=== PATIENT | female | born 1935 | race Caucasian/White ===

== ENCOUNTER 2017-09-30 08:50 | Day surgery (SDC) | payer MEDICARE, MEDICAID ==
[~2017-09-30] VITALS: Ht 162.6 cm; Wt 77.1 kg
[~2017-09-30 08:50] MED LIST: ABILIFY5 MG PO; ADULT ASPIRIN E81 MG PO; AMBIEN5 MG PO; AMLODIPINE5 MG PO; APAP325 MG PO; B-12-SL1000 MCG SL; BUPROPION150 MG PO; BUSPIRONE15 MG PO; BUSPIRONE5 MG PO; CARAFATE1 G1 PO; CELEXA40 MG OR; CIPROFLOXACIN500 M1 PO; CIPROFLOXACN500 MG PO; CITROMA PO; COREG12.5 MG OR; CYANOCOBAL1000 MCG/M; CYMBALTA60 MG PO; D31000 UNIT PO; DESYREL50 MG/TAB PO; FISH OIL1000 MG PO; FLEXERIL PO; FLUARIX QUADRIV1 IN2 IM; GABAPENTIN300 M2 PO; GAVILA1; GLYCOLAX3350 N1 PO; HYDROCHLOROT25 MG PO; HYDROCODONE/ACE1 TA1 PO; KLONOPIN1 MG PO; LORTAB 5-325 MG1 TAB PO; LORTAB 5/3255 MG PO; LOTRIMIN AF FOR H1 %; MEDDOSEPAK PO; MOBIC7.5 M1 PO; MULTI VIT PO; NITROSTAT0.4 MG SL; OXYBUTYNIN CHLO10 MG PO; OXYBUTYNIN5 M1 PO; OXYCODONE HCL5 MG PO; OXYCODONE30 MG OR; PERCOCET1 TA4 PO; PHENAZOPYRID100 MG PO; PREVACID30 M2 OR; PRILOSEC20 MG/CAP PO; RANITIDINE150 M1 PO; REMERON30 MG PO; RESTORIL30 MG OR; SENOKOT EXTRA17.2 MG PO; SEROQUEL50 MG PO; SERTRALINE HCL100 MG PO; TRAMADOL HCL50 MG PO; TRAZODONE HCL100 MG PO; TRAZODONE PO; TRAZODONE100 MG OR; TRAZODONE50 MG PO; TRIFLUOPERAZ2 MG PO; ULTRAM50 M1 PO; VESICARE10 MG PO; VITAMIN C PO; WAL-FEX D 1212 HOUR PO; XALATAN 0.005%2.5 ML OU; ZOLPIDEM TARTRAT5 MG PO; ZOLPIDEM10 M1 PO; ZYPREXA20 MG OR
[2017-09-30 12:22] VITALS: BP 162/74
== END 2017-09-30 11:55 | disposition home or self-care (01) ==
LOC: ENDO 08:50 → ORM 10:00 → ENDO 11:55 → ORM 12:20
PROVIDERS: ATTEND Internal Medicine Gastroenterology
PROC: 0D748ZZ Dilation of Esophagogastric Junction, Via Natural or Artificial Opening Endoscopic (ICD-10-PCS; principal; 2017-09-30)
PROC: 0DB48ZX Excision of Esophagogastric Junction, Via Natural or Artificial Opening Endoscopic, Diagnostic (ICD-10-PCS; 2017-09-30)
DX: K22.2 Esophageal obstruction (principal); K21.9 Gastro-esophageal reflux disease without esophagitis; K59.00 Constipation, unspecified; Q40.8 Other specified congenital malformations of upper alimentary tract; Q39.8 Other congenital malformations of esophagus; K31.89 Other diseases of stomach and duodenum; K44.9 Diaphragmatic hernia without obstruction or gangrene; K29.71 Gastritis, unspecified, with bleeding; I10 Essential (primary) hypertension; E78.00 Pure hypercholesterolemia, unspecified; F32.9 Major depressive disorder, single episode, unspecified; F41.9 Anxiety disorder, unspecified; Z86.010 Personal history of colon polyps; Z80.0 Family history of malignant neoplasm of digestive organs; Z90.3 Acquired absence of stomach [part of]

== ENCOUNTER 2018-07-17 16:35 | Observation (INO) | payer MEDICARE, MEDICAID ==
[~2018-07-17] VITALS: Ht 162.6 cm; Wt 72.3 kg
[2018-07-17 16:50] VITALS: BP 190/81
[2018-07-17 17:17] LABS: HEMATOCRIT 31.7 % (37.0-47.0); HEMOGLOBIN 10.6 g/dl (12.0-16.0); IMMATURE GRANULOCYTES 0.4 % (0.0-5.0); MEAN CELL VOLUME 85.4 fL CALC (80.0-100.0); MEAN CORPUSCULAR HGB 28.6 pG CALC (26.0-32.0); MEAN CORPUSCULAR HGB CONC 33.4 g/L CALC (32.0-36.0); NEUT# 7.09 thou/uL (2.00-7.15); RED BLOOD COUNT 3.71 mill/uL (4.20-5.60); RED CELL DISTRI WIDTH 13.6 % (11.5-15.5)
[2018-07-17 17:31] LABS: ANION GAP 15 (6-22 (CALC)); BUN 10 mg/dL (8-23); BUN/CREATININE RATIO 18 (12-20 (CALC)); CARBON DIOXIDE 25 mmol/l (22-30); CHLORIDE 93 mmol/l (95-108); CREATININE 0.6 mg/dL (0.5-1.0); GFR > 60 ML/MIN (>=60 (CALC)); GFR FOR AFR.AMER. > 60 ML/MIN (>=60 (CALC)); POTASSIUM 3.9 mmol/l (3.5-5.1)
[2018-07-17 17:33] LABS: SODIUM 129 mmol/l (137-146)
[2018-07-17 19:29] VITALS: BP 123/63
[2018-07-17 19:32] LABS: URINE BILIRUBIN - DIPSTICK NEGATIVE (NEGATIVE); URINE BLOOD DIPSTICK NEGATIVE (NEGATIVE); URINE COLOR YELLOW; URINE GLUCOSE - DIPSTICK NEGATIVE (NEGATIVE); URINE KETONE TRACE mg/dL (NEGATIVE); URINE NITRITE - DIPSTICK NEGATIVE (Negative); URINE PH 6.5 (4.5-8.0); URINE PROTEIN - DIPSTICK NEGATIVE (NEG-TRACE); URINE SPECIFIC GRAVITY 1.015; URINE UROBILINOGEN - DIPSTICK 0.2 E.U./dL (0.2)
[2018-07-17 19:43] LABS: URINE CLARITY HAZY; URINE LEUK ESTERASE SMALL (NEGATIVE)
[2018-07-17 19:52] LABS: URINE RBC 0-2 RBC/hpf (0-5); URINE SQUAMOUS EPITHELIAL CELL FEW EPI/hpf (0-FEW)
[2018-07-18] VITALS (7 sets, daily range): BP systolic 131–185; BP diastolic 60–86
[2018-07-18 05:17] LABS: HEMATOCRIT 26.1 % (37.0-47.0); HEMOGLOBIN 8.7 g/dl (12.0-16.0); IMMATURE GRANULOCYTES 0.5 % (0.0-5.0); MEAN CELL VOLUME 86.7 fL CALC (80.0-100.0); MEAN CORPUSCULAR HGB 28.9 pG CALC (26.0-32.0); MEAN CORPUSCULAR HGB CONC 33.3 g/L CALC (32.0-36.0); NEUT# 3.34 thou/uL (2.00-7.15); RED BLOOD COUNT 3.01 mill/uL (4.20-5.60); RED CELL DISTRI WIDTH 13.8 % (11.5-15.5)
[2018-07-18 05:29] LABS: ALKALINE PHOSPHATASE 70 u/l (38-126); ANION GAP 9 (6-22 (CALC)); BILIRUBIN, TOTAL 0.2 mg/dL (0.0-1.4); BUN 9 mg/dL (8-23); BUN/CREATININE RATIO 14 (12-20 (CALC)); CALCULATED LDLCHOLESTEROL 116 mg/dL (62-129 (CALC)); CARBON DIOXIDE 29 mmol/l (22-30); CHLORIDE 94 mmol/l (95-108); CHOLESTEROL HDL RATIO 4.7 (<4.4 (CALC)); CREATININE 0.6 mg/dL (0.5-1.0); GFR > 60 ML/MIN (>=60 (CALC)); GFR FOR AFR.AMER. > 60 ML/MIN (>=60 (CALC)); HDL CHOLESTEROL 38 mg/dL (>=40); POTASSIUM 3.4 mmol/l (3.5-5.1); SGOT/AST 15 u/l (9-36); SODIUM 129 mmol/l (137-146); TOTAL CHOLESTEROL 180 mg/dl (0-199); TOTAL TRIGLYCERIDES 130 mg/dl (30-149); VLDL CHOLESTROL 26 mg/dl (0-48 (CALC))
[2018-07-18 05:30] LABS: ALBUMIN 2.9 g/dL (3.2-5.0); TOTAL PROTEIN 5.3 g/dL (6.3-8.2)
[2018-07-19 04:00] VITALS: BP 160/80
[2018-07-19 05:26] LABS: IMMATURE GRANULOCYTES 0.3 % (0.0-5.0); MEAN CELL VOLUME 87.8 fL CALC (80.0-100.0); NEUT# 8.17 thou/uL (2.00-7.15); RED BLOOD COUNT 3.93 mill/uL (4.20-5.60); RED CELL DISTRI WIDTH 13.8 % (11.5-15.5)
[2018-07-19 05:41] LABS: HEMOGLOBIN 11.4 g/dl (12.0-16.0)
[2018-07-19 05:42] LABS: HEMATOCRIT 34.5 % (37.0-47.0)
[2018-07-19 05:45] LABS: BILIRUBIN, TOTAL 0.3 mg/dL (0.0-1.4); BUN 4 mg/dL (8-23); BUN/CREATININE RATIO 10 (12-20 (CALC)); CARBON DIOXIDE 26 mmol/l (22-30); CHLORIDE 102 mmol/l (95-108); CREATININE 0.4 mg/dL (0.5-1.0); GFR > 60 ML/MIN (>=60 (CALC)); GFR FOR AFR.AMER. > 60 ML/MIN (>=60 (CALC)); SGOT/AST 18 u/l (9-36)
[2018-07-19 05:47] LABS: ANION GAP 12 (6-22 (CALC))
[2018-07-19 05:48] LABS: ALBUMIN 3.9 g/dL (3.2-5.0); ALKALINE PHOSPHATASE 112 u/l (38-126); SODIUM 136 mmol/l (137-146); TOTAL PROTEIN 6.9 g/dL (6.3-8.2)
[2018-07-19 07:40] VITALS: BP 159/70
[2018-07-19 16:00] VITALS: BP 162/87
[2018-07-19 19:33] VITALS: BP 188/88
[2018-07-20 00:30] VITALS: BP 126/77
[2018-07-20 05:13] VITALS: BP 121/69
[2018-07-20 05:29] LABS: IMMATURE GRANULOCYTES 0.3 % (0.0-5.0); MEAN CELL VOLUME 87.9 fL CALC (80.0-100.0); MEAN CORPUSCULAR HGB 29.1 pG CALC (26.0-32.0); MEAN CORPUSCULAR HGB CONC 33.1 g/L CALC (32.0-36.0); NEUT# 4.93 thou/uL (2.00-7.15); RED BLOOD COUNT 3.13 mill/uL (4.20-5.60); RED CELL DISTRI WIDTH 14.1 % (11.5-15.5)
[2018-07-20 05:41] LABS: HEMATOCRIT 27.5 % (37.0-47.0); HEMOGLOBIN 9.1 g/dl (12.0-16.0)
[2018-07-20 05:45] LABS: ANION GAP 7 (6-22 (CALC)); BUN 2 mg/dL (8-23); BUN/CREATININE RATIO 6 (12-20 (CALC)); CARBON DIOXIDE 27 mmol/l (22-30); CHLORIDE 104 mmol/l (95-108); CREATININE 0.4 mg/dL (0.5-1.0); GFR > 60 ML/MIN (>=60 (CALC)); GFR FOR AFR.AMER. > 60 ML/MIN (>=60 (CALC)); POTASSIUM 3.3 mmol/l (3.5-5.1); SODIUM 135 mmol/l (137-146)
[2018-07-20 08:22] VITALS: BP 122/77
[2018-07-20 15:19] VITALS: BP 119/55
[2018-07-20 20:00] VITALS: BP 139/67
[2018-07-21 04:24] VITALS: BP 147/56
[2018-07-21 05:10] LABS: HEMATOCRIT 28.2 % (37.0-47.0); HEMOGLOBIN 9.3 g/dl (12.0-16.0); IMMATURE GRANULOCYTES 0.2 % (0.0-5.0); MEAN CELL VOLUME 88.1 fL CALC (80.0-100.0); MEAN CORPUSCULAR HGB 29.1 pG CALC (26.0-32.0); NEUT# 4.42 thou/uL (2.00-7.15); RED BLOOD COUNT 3.2 mill/uL (4.20-5.60)
[2018-07-21 05:39] LABS: ANION GAP 9 (6-22 (CALC)); BUN 3 mg/dL (8-23); BUN/CREATININE RATIO 8 (12-20 (CALC)); CARBON DIOXIDE 26 mmol/l (22-30); CHLORIDE 103 mmol/l (95-108); CREATININE 0.5 mg/dL (0.5-1.0); GFR > 60 ML/MIN (>=60 (CALC)); GFR FOR AFR.AMER. > 60 ML/MIN (>=60 (CALC)); POTASSIUM 3.9 mmol/l (3.5-5.1); SODIUM 135 mmol/l (137-146)
[2018-07-21 08:09] VITALS: BP 145/58
== END 2018-07-21 12:39 | disposition home health service (06) ==
LOC: MS2 16:35
PROVIDERS: ADMIT Internal Medicine Geriatric Medicine; ATTEND Internal Medicine Geriatric Medicine
DX: K59.00 Constipation, unspecified (principal); R10.9 Unspecified abdominal pain; I10 Essential (primary) hypertension; F32.9 Major depressive disorder, single episode, unspecified; F41.1 Generalized anxiety disorder; G62.9 Polyneuropathy, unspecified; F11.20 Opioid dependence, uncomplicated; G89.29 Other chronic pain; M54.5 Low back pain; I25.10 Atherosclerotic heart disease of native coronary artery without angina pectoris; E78.5 Hyperlipidemia, unspecified; F03.90 Unspecified dementia, unspecified severity, without behavioral disturbance, psychotic disturbance, mood disturbance, and anxiety; E03.9 Hypothyroidism, unspecified; K21.9 Gastro-esophageal reflux disease without esophagitis; F99 Mental disorder, not otherwise specified; M62.89 Other specified disorders of muscle
CPT/HCPCS: S0164

== ENCOUNTER 2018-10-09 06:29 | Emergency (ER) | payer MEDICARE, MEDICAID ==
[~2018-10-09] VITALS: Ht 162.6 cm; Wt 68.1 kg
[2018-10-09] MEDS ORDERED: PAROXETINE10 MG PO (06:43)
[2018-10-09] MEDS ORDERED: OLANZAPINE5 MG PO (06:44)
[2018-10-09] MEDS ORDERED: MELOXICAM7.5 MG PO (06:46)
[2018-10-09] MEDS ORDERED: RANITIDINE150 M1 PO (06:47)
[2018-10-09 08:02] LABS: URINE BILIRUBIN - DIPSTICK NEGATIVE (NEGATIVE); URINE BLOOD DIPSTICK TRACE-LYSED (NEGATIVE); URINE COLOR YELLOW; URINE GLUCOSE - DIPSTICK NEGATIVE (NEGATIVE); URINE KETONE NEGATIVE (NEGATIVE); URINE PH 6.5 (4.5-8.0); URINE PROTEIN - DIPSTICK NEGATIVE (NEG-TRACE); URINE SPECIFIC GRAVITY 1.015; URINE UROBILINOGEN - DIPSTICK 0.2 E.U./dL (0.2)
[2018-10-09 08:04] LABS: URINE LEUK ESTERASE MODERATE (NEGATIVE)
[2018-10-09 08:13] LABS: URINE NITRITE - DIPSTICK NEGATIVE (Negative); URINE RBC 0-2 RBC/hpf (0-5)
[2018-10-09 08:14] LABS: URINE BACTERIA RARE hpf; URINE EPITHELIAL CELLS FEW EPI/hpf (0-FEW)
[2018-10-09] MEDS ORDERED: ULTRAM50 M1 PO (08:33)
[2018-10-09] MEDS ORDERED: KEFLEX500 M1 PO (08:33)
[2018-10-09 08:52] VITALS: BP 190/102
== END 2018-10-09 09:06 | disposition home or self-care (01) ==
LOC: ED 06:29
PROVIDERS: Emergency Medicine
DX: S80.02XA Contusion of left knee, initial encounter (principal); N39.0 Urinary tract infection, site not specified; I10 Essential (primary) hypertension; I25.2 Old myocardial infarction; B95.1 Streptococcus, group B, as the cause of diseases classified elsewhere; W01.0XXA Fall on same level from slipping, tripping and stumbling without subsequent striking against object, initial encounter; Y92.099 Unspecified place in other non-institutional residence as the place of occurrence of the external cause; Z86.73 Personal history of transient ischemic attack (TIA), and cerebral infarction without residual deficits

== ENCOUNTER 2019-01-03 14:48 | Observation (INO) | payer MEDICARE, MEDICAID ==
[~2019-01-03] VITALS: Ht 162.6 cm; Wt 70.3 kg
[~2019-01-03 14:48] MED LIST changes: +KEFLEX500 M1 PO; +MELOXICAM7.5 MG PO; +OLANZAPINE5 MG PO; +PAROXETINE10 MG PO
[2019-01-03 15:49] VITALS: BP 156/87
--- NOTE | 2019-01-03 16:22 | NUR ---
PT ARRIVED TO FLOOR VIA W/C ACCOMPANIED BY HER SON IN STABLE CONDITION; PT AMBULATED TO DIGITAL SCALE, WT AND VITALS OBTAINED; A/O WITH SOME FORGETFULNESS; PT NOT SURE OF HOME MEDS; SKIN INTACT; INCONTINENT OF URINE; #22G LAC; TELE IN PLACE; PT HAS RT HEARING AIDE, UPPER DENTURE, GLASSES; ORIENT TO ROOM AND CALL CANTOR SYSTEM; SAFETY PRECAUTION REINFORCE; WILL CONTINUE TO MONITOR.
[2019-01-03 17:37] LABS: HEMATOCRIT 33.2 % (37.0-47.0); HEMOGLOBIN 10.3 g/dl (12.0-16.0); IMMATURE GRANULOCYTES 0.4 % (0.0-5.0); MEAN CORPUSCULAR HGB 27.6 pG CALC (26.0-32.0); NEUT# 5.72 thou/uL (2.00-7.15); RED BLOOD COUNT 3.73 mill/uL (4.20-5.60); RED CELL DISTRI WIDTH 14.1 % (11.5-15.5)
[2019-01-03 18:01] LABS: ANION GAP 13 (6-22 (CALC)); BUN 14 mg/dL (8-23); BUN/CREATININE RATIO 21 (12-20 (CALC)); CARBON DIOXIDE 26 mmol/l (22-30); CHLORIDE 107 mmol/l (95-108); CREATININE 0.7 mg/dL (0.5-1.0); GFR > 60 ML/MIN (>=60 (CALC)); GFR FOR AFR.AMER. > 60 ML/MIN (>=60 (CALC)); POTASSIUM 4.3 mmol/l (3.5-5.1); SODIUM 141 mmol/l (137-146)
--- NOTE | 2019-01-03 19:30 | NUR ---
REPORT RECEIVED FROM JESSICA NOVAK. PT RESTING IN BED ALERT AND ORIENTED, SON AT BED SIDE. PT ASSISTED TO BSC AND BACK INTO BED. GATE WEAK AND UNSTEADY. SAFETY PRECAUTIONS IN PLACE. WILL CONTINUE TO MONITOR.
[2019-01-03 19:51] VITALS: BP 139/74
[2019-01-04] VITALS (8 sets, daily range): BP systolic 101–149; BP diastolic 57–89
--- NOTE | 2019-01-04 | NUR ---
PT RESTING IN BED WITH EYES CLOSED. RESPIRATIONS SHALLOW ON O2 @ 3L. SAFETY PRECAUTIONS IN PLACE. WILL CONTINUE TO MONITOR.
--- NOTE | 2019-01-04 03:24 | NUR ---
PT RESTING IN BED WITH EYES CLOSED. REPIRATIONS SHALLOW ON O2 @ 3L. SAFETY PRECAUTIONS IN PLACE WILL CONTINUE TO MONITOR.
--- NOTE | 2019-01-04 04:25 | NUR ---
PT ASSISTED TO BSC AND BACK INTO BED. PT TOLERATED WELL. SAFETY PRECAUTIONS IN PLACE. WILL CONTINUE TO MONITOR.
[2019-01-04 05:37] LABS: ALBUMIN 3.7 g/dL (3.2-5.0); ALKALINE PHOSPHATASE 90 u/l (38-126); ANION GAP 11 (6-22 (CALC)); BILIRUBIN, TOTAL 0.4 mg/dL (0.0-1.4); BUN 15 mg/dL (8-23); BUN/CREATININE RATIO 23 (12-20 (CALC)); CARBON DIOXIDE 28 mmol/l (22-30); CHLORIDE 107 mmol/l (95-108); CREATININE 0.7 mg/dL (0.5-1.0); GFR > 60 ML/MIN (>=60 (CALC)); GFR FOR AFR.AMER. > 60 ML/MIN (>=60 (CALC)); POTASSIUM 3.9 mmol/l (3.5-5.1); SGOT/AST 14 u/l (9-36); SODIUM 142 mmol/l (137-146); TOTAL PROTEIN 6.5 g/dL (6.3-8.2)
--- NOTE | 2019-01-04 07:39 | NUR ---
REPORT RECEIVED FROM MOHIT RN; PT SITTING UP IN BED; ASSESSMENT COMPELTED; RESP EVEN AND UNLABORED, 02 @ 3L NC; TELE IN PLACE; IVF NS INFUSING @60 CC/HR, IV SITE APPEARS HEALTHY; TELE IN PLACE; PT ENCOURAGE TO SIT UP IN CHAIR; ENCOURAGE TO CALL FOR ASSISTANCE; C/O OF BEING DEPRESS; CALL CANTOR IN REACH.
--- NOTE | 2019-01-04 08:08 | NUR ---
DR LEACH AT BEDSIDE TO DISCUSS POC
--- NOTE | 2019-01-04 10:45 | NUR ---
PT ASSISTED TO BSC VOIDED 400CC CLEAR YELLOW URINE, BACK INTO RECLINER; CALL CANTOR IN REACH;
[2019-01-04 10:59] LABS: URINE BILIRUBIN - DIPSTICK NEGATIVE (NEGATIVE); URINE BLOOD DIPSTICK NEGATIVE (NEGATIVE); URINE COLOR YELLOW; URINE GLUCOSE - DIPSTICK NEGATIVE (NEGATIVE); URINE KETONE NEGATIVE (NEGATIVE); URINE LEUK ESTERASE NEGATIVE (NEGATIVE); URINE NITRITE - DIPSTICK NEGATIVE (Negative); URINE PH 5.5 (4.5-8.0); URINE PROTEIN - DIPSTICK NEGATIVE (NEG-TRACE); URINE UROBILINOGEN - DIPSTICK 0.2 E.U./dL (0.2)
--- NOTE | 2019-01-04 11:54 | NUR ---
PT SITTING UP IN RECLINER EATING LUNCH; UP MULTIPLE TIMES USING THE BSC; IVF NS INFUSING WITHOUT DIFFICULTY; TELE IN PLACE; PHARMACY STUDENTS AT BEDSIDE. CALL CANTOR IN REACH.
[2019-01-04] MEDS ORDERED: ACETAMINOPHEN325 MG PO (13:11)
[2019-01-04] MEDS ORDERED: EQ MUCUS ER600 MG PO (13:15)
[2019-01-04] MEDS ORDERED: QUETIAPINE FUMA50 MG PO (13:27)
[2019-01-04] MEDS ORDERED: CARAFATE1 GM PO (13:30)
[2019-01-04] MEDS ORDERED: VITAMIN B-121000 MC1 PO (13:36)
[2019-01-04] MEDS ORDERED: FOLIC ACID400 MC1 PO (13:37)
[2019-01-04] MEDS ORDERED: STOOL SOFTNR (13:38)
--- NOTE | 2019-01-04 15:20 | NUR ---
REPORT RECEIVED FROM JESSICA NOVAK;PT OOB RESTING IN RECLINER WITH FAMILY AT BEDSIDE;RESPIRATIONS EVEN AND UNLABORED ON RA;IV FLUIDS INFUSING WITH EASE TO LAC;TELE MONITORING IN PLACE;PT DENIES ANY CURRENT PAIN OR NEEDS;ENCOURAGED TO CALL FOR ASSISTANCE IF NEEDED;FALL PRECAUTIONS IN PLACE WITH CALL LIGHT IN REACH;WILL CONTINUE TO MONITOR
--- NOTE | 2019-01-04 20:00 | NUR ---
PT RESTING IN BED, NO SIGNS OF DISTRESS NOTED, RESP EVEN AND UNLABORED. DISCUSSED POC, SON AT BEDSIDE. ALERT AND ORIENTED X3. PT VOICES NO NEEDS OR COMPLAINTS AT THIS TIME. CALL LIGHT IN REACH,CONTINUE TO MONITOR.
--- NOTE | 2019-01-05 | NUR ---
PT RESTING IN BED, NO SIGNS OF DISTRESS NOTED, RESP EVEN AND UNLABORED. CALL LIGHT IN REACH,CONTINUE TO MONITOR.
[2019-01-05 00:16] VITALS: BP 116/76
[2019-01-05 05:11] VITALS: BP 121/74
--- NOTE | 2019-01-05 06:00 | NUR ---
PT RESTING IN BED, NO SIGNS OF DISTRESS NOTED, RESP EVEN AND UNLABORED. VOICES NO NEEDS OR COMPLAINTS AT THIS TIME. CALL LIGHT IN REACH,CONTINUE TO MONITOR.
[2019-01-05 06:12] LABS: HEMATOCRIT 32.5 % (37.0-47.0); HEMOGLOBIN 9.9 g/dl (12.0-16.0); IMMATURE GRANULOCYTES 0.3 % (0.0-5.0); MEAN CELL VOLUME 91.3 fL CALC (80.0-100.0); MEAN CORPUSCULAR HGB 27.8 pG CALC (26.0-32.0); MEAN CORPUSCULAR HGB CONC 30.5 g/L CALC (32.0-36.0); NEUT# 3.67 thou/uL (2.00-7.15); RED BLOOD COUNT 3.56 mill/uL (4.20-5.60); RED CELL DISTRI WIDTH 14.3 % (11.5-15.5)
[2019-01-05 06:38] LABS: ALBUMIN 3.6 g/dL (3.2-5.0); ALKALINE PHOSPHATASE 88 u/l (38-126); ANION GAP 12 (6-22 (CALC)); BILIRUBIN, TOTAL 0.4 mg/dL (0.0-1.4); BUN 22 mg/dL (8-23); BUN/CREATININE RATIO 25 (12-20 (CALC)); CARBON DIOXIDE 30 mmol/l (22-30); CHLORIDE 103 mmol/l (95-108); CREATININE 0.9 mg/dL (0.5-1.0); GFR 60 ML/MIN (>=60 (CALC)); GFR FOR AFR.AMER. > 60 ML/MIN (>=60 (CALC)); POTASSIUM 3.9 mmol/l (3.5-5.1); SGOT/AST 14 u/l (9-36); SODIUM 141 mmol/l (137-146); TOTAL PROTEIN 6.2 g/dL (6.3-8.2)
--- NOTE | 2019-01-05 07:35 | NUR ---
ASSESSMENT IS COMPLETED: IV SITE IS FREE FROM REDNESS OR EDEMA. HR IS REG,PULSES ARE STRONG X4, ABD IS SOFT WITH ACTIVE BS. BREATH SOUNDS ARE CLEAR, BILATERALLY. TELE MONITOR IN PLACE. CONTINUE TO ERNESTO AND JASON.
[2019-01-05] MEDS ORDERED: LASIX 40 MG TAB40 MG PO (08:26)
[2019-01-05] MEDS ORDERED: POT CHLORIDE10 ME1 PO (08:26)
[2019-01-05] MEDS ORDERED: CARVEDILOL12.5 MG PO (08:27)
[2019-01-05] MEDS ORDERED: LISINOPRIL10 MG PO (08:27)
[2019-01-05] MEDS ORDERED: DICLOFENAC SODI75 MG PO (08:28)
[2019-01-05 11:05] VITALS: BP 136/75
--- NOTE | 2019-01-05 12:00 | NUR ---
PT IS RELAXING IN BED WITH NO DISTRESS NOTED.
--- NOTE | 2019-01-05 14:20 | NUR ---
IV SITE DISCONTINUED CATHETER INTACT. NO REDNESS OR EDEMA. TELE MONITOR OFF. DISCHARGE INSTRUCTIONS GIVEN . FAMILY IN THE ROOM. Discharge instructions given. Patient verbalizes understanding of same. Discharged in stable condition via Wheelchair to ACLF with family. All belongings sent with pt.ALL BELONGINGS SENT WITH PT.
== END 2019-01-05 14:05 ==
LOC: MS2 14:48
PROVIDERS: ADMIT Internal Medicine Geriatric Medicine; ATTEND Internal Medicine Geriatric Medicine
DX: I11.0 Hypertensive heart disease with heart failure (principal); I50.9 Heart failure, unspecified; I25.10 Atherosclerotic heart disease of native coronary artery without angina pectoris; E03.9 Hypothyroidism, unspecified; M19.90 Unspecified osteoarthritis, unspecified site; F41.1 Generalized anxiety disorder; F32.9 Major depressive disorder, single episode, unspecified; E78.5 Hyperlipidemia, unspecified; K21.9 Gastro-esophageal reflux disease without esophagitis; K59.00 Constipation, unspecified; F03.90 Unspecified dementia, unspecified severity, without behavioral disturbance, psychotic disturbance, mood disturbance, and anxiety; G62.9 Polyneuropathy, unspecified

== ENCOUNTER 2019-03-05 11:05 | Observation (INO) | payer MEDICARE, MEDICAID ==
[~2019-03-05] VITALS: Ht 162.6 cm; Wt 76.0 kg
[~2019-03-05 11:05] MED LIST changes: +ACETAMINOPHEN325 MG PO; +CARAFATE1 GM PO; +CARVEDILOL12.5 MG PO; +DICLOFENAC SODI75 MG PO; +DICYCLOMINE10 MG PO; +EQ MUCUS ER600 MG PO; +FOLIC ACID400 MC1 PO; +LASIX 40 MG TAB40 MG PO; +LISINOPRIL10 MG PO; +POT CHLORIDE10 ME1 PO; +QUETIAPINE FUMA50 MG PO; +STOOL SOFTNR; +VITAMIN B-121000 MC1 PO
[2019-03-05 12:04] LABS: HEMATOCRIT 35.5 % (37.0-47.0); HEMOGLOBIN 11.1 g/dl (12.0-16.0); IMMATURE GRANULOCYTES 0.3 % (0.0-5.0); MEAN CELL VOLUME 88.5 fL CALC (80.0-100.0); MEAN CORPUSCULAR HGB 27.7 pG CALC (26.0-32.0); MEAN CORPUSCULAR HGB CONC 31.3 g/L CALC (32.0-36.0); NEUT# 4.77 thou/uL (2.00-7.15); RED BLOOD COUNT 4.01 mill/uL (4.20-5.60); RED CELL DISTRI WIDTH 14.2 % (11.5-15.5)
[2019-03-05 12:24] LABS: ALBUMIN 3.9 g/dL (3.2-5.0); ALKALINE PHOSPHATASE 98 u/l (38-126); ANION GAP 13 (6-22 (CALC)); BILIRUBIN, TOTAL 0.4 mg/dL (0.0-1.4); BUN 17 mg/dL (8-23); BUN/CREATININE RATIO 24 (12-20 (CALC)); CALCULATED LDLCHOLESTEROL 121 mg/dL (62-129 (CALC)); CARBON DIOXIDE 27 mmol/l (22-30); CHLORIDE 105 mmol/l (95-108); CHOLESTEROL HDL RATIO 4.1 (<4.4 (CALC)); CREATININE 0.7 mg/dL (0.5-1.0); GFR > 60 ML/MIN (>=60 (CALC)); GFR FOR AFR.AMER. > 60 ML/MIN (>=60 (CALC)); HDL CHOLESTEROL 51 mg/dL (>=40); POTASSIUM 4.1 mmol/l (3.5-5.1); SGOT/AST 17 u/l (9-36); SODIUM 141 mmol/l (137-146); TOTAL CHOLESTEROL 212 mg/dl (0-199); TOTAL PROTEIN 6.7 g/dL (6.3-8.2); TOTAL TRIGLYCERIDES 202 mg/dl (30-149); VLDL CHOLESTROL 40 mg/dl (0-48 (CALC))
[2019-03-05 13:43] LABS: URINE BILIRUBIN - DIPSTICK NEGATIVE (NEGATIVE); URINE BLOOD DIPSTICK TRACE-INTACT (NEGATIVE); URINE COLOR YELLOW; URINE GLUCOSE - DIPSTICK NEGATIVE (NEGATIVE); URINE KETONE NEGATIVE (NEGATIVE); URINE LEUK ESTERASE TRACE (Negative); URINE NITRITE - DIPSTICK NEGATIVE (Negative); URINE PH 7.5 (4.5-8.0); URINE PROTEIN - DIPSTICK NEGATIVE (NEG-TRACE); URINE UROBILINOGEN - DIPSTICK 0.2 E.U./dL (0.2)
[2019-03-05 13:44] LABS: URINE CLARITY CLEAR
[2019-03-05 14:45] VITALS: BP 161/83
[2019-03-05] MEDS ORDERED: LOTRISONE TOP (16:18)
[2019-03-05] MEDS ORDERED: PROZAC10 MG PO (16:25)
[2019-03-05 17:12] VITALS: BP 138/61
[2019-03-05 19:05] VITALS: BP 170/100
[2019-03-05 20:10] VITALS: BP 160/92
[2019-03-06] VITALS (7 sets, daily range): BP systolic 105–143; BP diastolic 61–76
[2019-03-06 02:54] LABS: HEMATOCRIT 30.9 % (37.0-47.0); HEMOGLOBIN 9.6 g/dl (12.0-16.0); IMMATURE GRANULOCYTES 0.3 % (0.0-5.0); MEAN CELL VOLUME 89.8 fL CALC (80.0-100.0); MEAN CORPUSCULAR HGB 27.9 pG CALC (26.0-32.0); MEAN CORPUSCULAR HGB CONC 31.1 g/L CALC (32.0-36.0); NEUT# 3.75 thou/uL (2.00-7.15); RED BLOOD COUNT 3.44 mill/uL (4.20-5.60); RED CELL DISTRI WIDTH 14.4 % (11.5-15.5)
[2019-03-07 04:21] VITALS: BP 151/61
[2019-03-07 05:28] LABS: HEMATOCRIT 31.5 % (37.0-47.0); HEMOGLOBIN 9.6 g/dl (12.0-16.0); IMMATURE GRANULOCYTES 0.2 % (0.0-5.0); MEAN CELL VOLUME 90.5 fL CALC (80.0-100.0); MEAN CORPUSCULAR HGB 27.6 pG CALC (26.0-32.0); MEAN CORPUSCULAR HGB CONC 30.5 g/L CALC (32.0-36.0); NEUT# 3.24 thou/uL (2.00-7.15); RED BLOOD COUNT 3.48 mill/uL (4.20-5.60); RED CELL DISTRI WIDTH 14.3 % (11.5-15.5)
[2019-03-07 05:52] LABS: ALKALINE PHOSPHATASE 73 u/l (38-126); ANION GAP 11 (6-22 (CALC)); BUN 18 mg/dL (8-23); BUN/CREATININE RATIO 24 (12-20 (CALC)); CARBON DIOXIDE 28 mmol/l (22-30); CHLORIDE 106 mmol/l (95-108); CREATININE 0.7 mg/dL (0.5-1.0); GFR > 60 ML/MIN (>=60 (CALC)); GFR FOR AFR.AMER. > 60 ML/MIN (>=60 (CALC)); POTASSIUM 4.1 mmol/l (3.5-5.1); SGOT/AST 14 u/l (9-36); SODIUM 141 mmol/l (137-146); TOTAL PROTEIN 5.6 g/dL (6.3-8.2)
[2019-03-07 06:04] LABS: ALBUMIN 3.1 g/dL (3.2-5.0); BILIRUBIN, TOTAL 0.2 mg/dL (0.0-1.4)
[2019-03-07 08:07] VITALS: BP 134/80; BP 141/72
[2019-03-07] MEDS ORDERED: ALPRAZOLAM0.5 MG PO (09:08)
[2019-03-07 11:05] VITALS: BP 131/71
== END 2019-03-07 12:36 | disposition home or self-care (01) ==
LOC: MS2 11:05
PROVIDERS: ADMIT Internal Medicine Geriatric Medicine; ATTEND Internal Medicine Geriatric Medicine
DX: J18.9 Pneumonia, unspecified organism (principal); R07.89 Other chest pain; L30.4 Erythema intertrigo; I25.10 Atherosclerotic heart disease of native coronary artery without angina pectoris; I11.0 Hypertensive heart disease with heart failure; I50.9 Heart failure, unspecified; J44.9 Chronic obstructive pulmonary disease, unspecified; M19.90 Unspecified osteoarthritis, unspecified site; F32.9 Major depressive disorder, single episode, unspecified; F41.1 Generalized anxiety disorder; F19.20 Other psychoactive substance dependence, uncomplicated; E78.5 Hyperlipidemia, unspecified; G62.9 Polyneuropathy, unspecified; E03.9 Hypothyroidism, unspecified; I47.2 Ventricular tachycardia; K21.9 Gastro-esophageal reflux disease without esophagitis; R26.89 Other abnormalities of gait and mobility; G89.29 Other chronic pain
CPT/HCPCS: S0164

== ENCOUNTER 2019-08-12 14:50 | Emergency (ER) | payer MEDICARE, MEDICAID ==
[~2019-08-12] VITALS: Ht 162.6 cm; Wt 74.0 kg
[~2019-08-12 14:50] MED LIST changes: +ALPRAZOLAM0.5 MG PO; +LOTRISONE TOP; +PROZAC10 MG PO
[2019-08-12] MEDS ORDERED: ASPIRIN ADULT L81 M2 PO (15:43)
[2019-08-12] MEDS ORDERED: DRISDOL50000 UNIT PO (15:44)
[2019-08-12] MEDS ORDERED: SERTRALINE HCL50 MG PO (15:45)
[2019-08-12] MEDS ORDERED: CVS STOOL SOFT PO (15:46)
[2019-08-12] MEDS ORDERED: CYANOCOBAL1000 MCG/M IM (15:47)
[2019-08-12] MEDS ORDERED: TRAZODONE50 MG PO (15:50)
[2019-08-12] MEDS ORDERED: KLONOPIN1 MG PO (15:51)
[2019-08-12] MEDS ORDERED: TYLENOL325 M2 PO (15:55)
[2019-08-12] MEDS ORDERED: OMEPRAZOLE20 MG PO (15:56)
[2019-08-12 16:00] LABS: HEMATOCRIT 34.4 % (37.0-47.0); HEMOGLOBIN 11.1 g/dl (12.0-16.0); IMMATURE GRANULOCYTES 0.2 % (0.0-5.0); MEAN CELL VOLUME 89.8 fL CALC (80.0-100.0); MEAN CORPUSCULAR HGB CONC 32.3 g/L CALC (32.0-36.0); NEUT# 6.54 thou/uL (2.00-7.15); RED BLOOD COUNT 3.83 mill/uL (4.20-5.60); RED CELL DISTRI WIDTH 13.4 % (11.5-15.5)
[2019-08-12 16:26] LABS: ALBUMIN 3.9 g/dL (3.2-5.0); ALKALINE PHOSPHATASE 98 u/l (38-126); AMYLASE 42 u/l (30-110); ANION GAP 12 (6-22 (CALC)); BILIRUBIN, TOTAL 0.4 mg/dL (0.0-1.4); BUN 13 mg/dL (8-23); BUN/CREATININE RATIO 23 (12-20 (CALC)); CARBON DIOXIDE 30 mmol/l (22-30); CHLORIDE 98 mmol/l (95-108); CREATININE 0.6 mg/dL (0.5-1.0); GFR > 60 ML/MIN (>=60 (CALC)); GFR FOR AFR.AMER. > 60 ML/MIN (>=60 (CALC)); LIPASE 83 u/l (23-300); POTASSIUM 4.4 mmol/l (3.5-5.1); SGOT/AST 22 u/l (9-36); SODIUM 136 mmol/l (137-146); TOTAL PROTEIN 6.9 g/dL (6.3-8.2)
[2019-08-12 16:38] LABS: MYOGLOBIN 50 ng/mL (0 - 62)
[2019-08-12 16:42] LABS: URINE BILIRUBIN - DIPSTICK NEGATIVE (NEGATIVE); URINE BLOOD DIPSTICK TRACE-INTACT (NEGATIVE); URINE COLOR YELLOW; URINE GLUCOSE - DIPSTICK NEGATIVE (NEGATIVE); URINE KETONE NEGATIVE (NEGATIVE); URINE LEUK ESTERASE NEGATIVE (NEGATIVE); URINE NITRITE - DIPSTICK NEGATIVE (Negative); URINE PROTEIN - DIPSTICK NEGATIVE (NEG-TRACE); URINE UROBILINOGEN - DIPSTICK 0.2 E.U./dL (0.2)
[2019-08-12] MEDS ORDERED: ZOFRAN4 MG/TAB PO (19:41)
[2019-08-12] MEDS ORDERED: TESSALON PER100 MG PO (19:54)
[2019-08-12 20:15] VITALS: BP 125/58
== END 2019-08-12 20:20 | disposition home or self-care (01) ==
LOC: ED 14:50
PROVIDERS: Emergency Medicine
DX: I10 Essential (primary) hypertension (principal); F41.9 Anxiety disorder, unspecified; F32.9 Major depressive disorder, single episode, unspecified; R11.2 Nausea with vomiting, unspecified; I25.2 Old myocardial infarction; Z86.73 Personal history of transient ischemic attack (TIA), and cerebral infarction without residual deficits
CPT/HCPCS: Q9967

== ENCOUNTER 2020-05-13 09:39 | Emergency (ER) | payer MEDICARE, MEDICAID ==
[~2020-05-13] VITALS: Ht 162.6 cm; Wt 77.2 kg
[~2020-05-13 09:39] MED LIST changes: +ASPIRIN ADULT L81 M2 PO; +CVS STOOL SOFT PO; +CYANOCOBAL1000 MCG/M IM; +DRISDOL50000 UNIT PO; +OMEPRAZOLE20 MG PO; +SERTRALINE HCL50 MG PO; +TESSALON PER100 MG PO; +TYLENOL325 M2 PO; +ZOFRAN4 MG/TAB PO
[2020-05-13 10:39] LABS: URINE BILIRUBIN - DIPSTICK NEGATIVE (NEGATIVE); URINE BLOOD DIPSTICK NEGATIVE (NEGATIVE); URINE COLOR YELLOW; URINE GLUCOSE - DIPSTICK NEGATIVE (NEGATIVE); URINE KETONE NEGATIVE (NEGATIVE); URINE LEUK ESTERASE NEGATIVE (NEGATIVE); URINE NITRITE - DIPSTICK NEGATIVE (Negative); URINE PROTEIN - DIPSTICK NEGATIVE (NEG-TRACE); URINE UROBILINOGEN - DIPSTICK 0.2 E.U./dL (0.2)
[2020-05-13 10:40] LABS: HEMATOCRIT 34.7 % (37.0-47.0); HEMOGLOBIN 10.5 g/dl (12.0-16.0); IMMATURE GRANULOCYTES 0.4 % (0.0-5.0); MEAN CELL VOLUME 87.4 fL CALC (80.0-100.0); MEAN CORPUSCULAR HGB 26.4 pG CALC (26.0-32.0); MEAN CORPUSCULAR HGB CONC 30.3 g/dL CAL (32.0-36.0); NEUT# 5.58 thou/uL (2.00-7.15); RED BLOOD COUNT 3.97 mill/uL (4.20-5.60); RED CELL DISTRI WIDTH 14.7 % (11.5-15.5)
[2020-05-13 11:00] LABS: ALBUMIN 3.8 g/dL (3.2-5.0); ALKALINE PHOSPHATASE 91 u/l (38-126); ANION GAP 11 (6-22 (CALC)); BILIRUBIN, TOTAL 0.4 mg/dL (0.0-1.4); BUN 7 mg/dL (8-23); BUN/CREATININE RATIO 11 (12-20 (CALC)); CARBON DIOXIDE 25 mmol/l (22-30); CHLORIDE 104 mmol/l (95-108); CREATININE 0.6 mg/dL (0.5-1.0); GFR > 60 ML/MIN (>=60 (CALC)); GFR FOR AFR.AMER. > 60 ML/MIN (>=60 (CALC)); LIPASE 65 u/l (23-300); POTASSIUM 4.4 mmol/l (3.5-5.1); SGOT/AST 18 u/l (9-36); SODIUM 136 mmol/l (137-146); TOTAL PROTEIN 6.6 g/dL (6.3-8.2)
[2020-05-13 15:30] VITALS: BP 189/83
== END 2020-05-13 15:30 | disposition home or self-care (01) ==
LOC: ED 09:39
PROVIDERS: Family Medicine
DX: K59.00 Constipation, unspecified (principal); I10 Essential (primary) hypertension; I25.2 Old myocardial infarction; Z86.73 Personal history of transient ischemic attack (TIA), and cerebral infarction without residual deficits
CPT/HCPCS: Q9967

== ENCOUNTER 2020-08-13 06:43 | Emergency (ER) | payer MEDICARE, MEDICAID ==
[~2020-08-13] VITALS: Ht 162.6 cm; Wt 72.0 kg
[~2020-08-13 06:43] MED LIST changes: +MI-ACID GAS80 MG PO; +PEG335017 GM/SCOO PO; +VITAMIN B-12500 MCG PO; +VITAMIN D50000 UNIT PO; +ZPAK PO
[2020-08-13] MEDS ORDERED: DOK100 MG PO (07:30)
[2020-08-13] MEDS ORDERED: ALBUTEROL SUL0.083 % IN (07:33)
[2020-08-13 07:34] LABS: HEMATOCRIT 31.2 % (37.0-47.0); HEMOGLOBIN 9.5 g/dl (12.0-16.0); IMMATURE GRANULOCYTES 0.5 % (0.0-5.0); MEAN CELL VOLUME 85.7 fL CALC (80.0-100.0); MEAN CORPUSCULAR HGB 26.1 pG CALC (26.0-32.0); MEAN CORPUSCULAR HGB CONC 30.4 g/dL CAL (32.0-36.0); NEUT# 4.66 thou/uL (2.00-7.15); RED BLOOD COUNT 3.64 mill/uL (4.20-5.60); RED CELL DISTRI WIDTH 14.6 % (11.5-15.5)
[2020-08-13] MEDS ORDERED: KLONOPIN1 MG PO (07:34)
[2020-08-13] MEDS ORDERED: NITROGLYCERIN0.4 MG SL (07:40)
[2020-08-13 07:54] LABS: ALBUMIN 3.5 g/dL (3.2-5.0); ALKALINE PHOSPHATASE 119 u/l (38-126); ANION GAP 11 (6-22 (CALC)); BILIRUBIN, TOTAL 0.2 mg/dL (0.0-1.4); BUN 8 mg/dL (8-23); BUN/CREATININE RATIO 13 (12-20 (CALC)); CARBON DIOXIDE 24 mmol/l (22-30); CHLORIDE 108 mmol/l (95-108); CREATININE 0.6 mg/dL (0.5-1.0); GFR > 60 ML/MIN (>=60 (CALC)); GFR FOR AFR.AMER. > 60 ML/MIN (>=60 (CALC)); SGOT/AST 15 u/l (9-36); SODIUM 139 mmol/l (137-146); TOTAL PROTEIN 6.5 g/dL (6.3-8.2)
[2020-08-13 08:07] LABS: MYOGLOBIN 24 ng/mL (0 - 62)
[2020-08-13 08:30] LABS: URINE BILIRUBIN - DIPSTICK NEGATIVE (NEGATIVE); URINE BLOOD DIPSTICK NEGATIVE (NEGATIVE); URINE COLOR YELLOW; URINE GLUCOSE - DIPSTICK NEGATIVE (NEGATIVE); URINE KETONE NEGATIVE (NEGATIVE); URINE LEUK ESTERASE NEGATIVE (NEGATIVE); URINE NITRITE - DIPSTICK NEGATIVE (Negative); URINE PROTEIN - DIPSTICK NEGATIVE (NEG-TRACE); URINE SPECIFIC GRAVITY 1.015; URINE UROBILINOGEN - DIPSTICK 0.2 E.U./dL (0.2)
[2020-08-13 10:51] VITALS: BP 152/74
== END 2020-08-13 12:05 | disposition home or self-care (01) ==
LOC: ED 06:43
PROVIDERS: Emergency Medicine
DX: R07.89 Other chest pain (principal); F41.9 Anxiety disorder, unspecified; F32.9 Major depressive disorder, single episode, unspecified; I12.9 Hypertensive chronic kidney disease with stage 1 through stage 4 chronic kidney disease, or unspecified chronic kidney disease; N18.9 Chronic kidney disease, unspecified; T43.506A Underdosing of unspecified antipsychotics and neuroleptics, initial encounter; T43.206A Underdosing of unspecified antidepressants, initial encounter; I25.2 Old myocardial infarction; Z91.138 Patient's unintentional underdosing of medication regimen for other reason

== ENCOUNTER 2020-08-25 09:28 | Emergency (ER) | payer MEDICARE, MEDICAID ==
[~2020-08-25] VITALS: Ht 162.6 cm; Wt 70.0 kg
[~2020-08-25 09:28] MED LIST changes: +ALBUTEROL SUL0.083 % IN; +DOK100 MG PO; +NITROGLYCERIN0.4 MG SL
[2020-08-25 10:09] LABS: HEMATOCRIT 29.8 % (37.0-47.0); HEMOGLOBIN 8.9 g/dl (12.0-16.0); IMMATURE GRANULOCYTES 0.4 % (0.0-5.0); MEAN CELL VOLUME 85.6 fL CALC (80.0-100.0); MEAN CORPUSCULAR HGB 25.6 pG CALC (26.0-32.0); MEAN CORPUSCULAR HGB CONC 29.9 g/dL CAL (32.0-36.0); NEUT# 9.38 thou/uL (2.00-7.15); RED BLOOD COUNT 3.48 mill/uL (4.20-5.60); RED CELL DISTRI WIDTH 14.9 % (11.5-15.5)
[2020-08-25] MEDS ORDERED: ESCITALOPRAM OX10 MG PO (10:56)
[2020-08-25] MEDS ORDERED: REMERON15 MG PO (10:56)
[2020-08-25] MEDS ORDERED: ZOLPIDEM5 M1 PO (10:57)
[2020-08-25] MEDS ORDERED: ASPIRIN81 MG PO (10:58)
[2020-08-25] MEDS ORDERED: VITAMIN D PO (10:59)
[2020-08-25] MEDS ORDERED: B121000 MCG PO (10:59)
[2020-08-25] MEDS ORDERED: NIFEDIPINE30 MG PO (11:00)
[2020-08-25] MEDS ORDERED: CYMBALTA60 MG PO (11:00)
[2020-08-25] MEDS ORDERED: CARVEDILOL6.25 MG PO (11:01)
[2020-08-25 11:09] LABS: ALBUMIN 3.4 g/dL (3.2-5.0); ALKALINE PHOSPHATASE 108 u/l (38-126); ANION GAP 12 (6-22 (CALC)); BUN 12 mg/dL (8-23); BUN/CREATININE RATIO 22 (12-20 (CALC)); CARBON DIOXIDE 26 mmol/l (22-30); CHLORIDE 104 mmol/l (95-108); CREATININE 0.6 mg/dL (0.5-1.0); GFR > 60 ML/MIN (>=60 (CALC)); GFR FOR AFR.AMER. > 60 ML/MIN (>=60 (CALC)); POTASSIUM 4.2 mmol/l (3.5-5.1); SGOT/AST 16 u/l (9-36); SODIUM 138 mmol/l (137-146); TOTAL PROTEIN 6.2 g/dL (6.3-8.2)
[2020-08-25 11:10] LABS: BILIRUBIN, TOTAL 0.3 mg/dL (0.0-1.4)
[2020-08-25 11:25] LABS: URINE BILIRUBIN - DIPSTICK NEGATIVE (NEGATIVE); URINE BLOOD DIPSTICK TRACE-INTACT (NEGATIVE); URINE COLOR YELLOW; URINE GLUCOSE - DIPSTICK NEGATIVE (NEGATIVE); URINE KETONE NEGATIVE (NEGATIVE); URINE LEUK ESTERASE TRACE (NEGATIVE); URINE PROTEIN - DIPSTICK NEGATIVE (NEG-TRACE); URINE SPECIFIC GRAVITY 1.015; URINE UROBILINOGEN - DIPSTICK 0.2 E.U./dL (0.2)
[2020-08-25 11:26] LABS: URINE NITRITE - DIPSTICK POSITIVE (Negative); URINE RBC 0-2 RBC/hpf (0-5)
[2020-08-25 11:27] LABS: URINE BACTERIA MANY hpf; URINE EPITHELIAL CELLS MANY EPI/hpf (0-FEW)
[2020-08-25 16:19] VITALS: BP 151/78
== END 2020-08-25 16:06 | disposition short-term general hospital (02) ==
LOC: ED 09:28
PROVIDERS: Family Medicine
PROC: 009U3ZX Drainage of Spinal Canal, Percutaneous Approach, Diagnostic (ICD-10-PCS; principal; 2020-08-25)
DX: G61.0 Guillain-Barre syndrome (principal); I10 Essential (primary) hypertension; F41.9 Anxiety disorder, unspecified; I25.2 Old myocardial infarction; Z20.828 Contact with and (suspected) exposure to other viral communicable diseases; R82.71 Bacteriuria